=== PATIENT | male | born 2000 | race Hispanic/Latino ===

== ENCOUNTER 2023-01-05 02:15 | Emergency (ER) | payer OTHER ==
[~2023-01-05] VITALS: Ht 172.7 cm; Wt 54.4 kg
[2023-01-05 03:07] LABS: AMPHET/METH SCREEN,URINE NEGATIVE (NEGATIVE); BARBITURATE SCREEN, URINE NEGATIVE (NEGATIVE); BENZODIAZEPINES SCREEN,URINE NEGATIVE (NEGATIVE); CANNABINOID SCREEN,URINE POSITIVE (NEGATIVE); COCAINE SCREEN,URINE NEGATIVE (NEGATIVE); OPIATE SCREEN,URINE NEGATIVE (NEGATIVE); PHENCYCLIDINE SCREEN,URINE NEGATIVE (NEGATIVE)
[2023-01-05 03:13] LABS: BASOPHILS # (AUTO) 0.03 K/uL (0.00-0.20); BASOPHILS % (AUTO) 0.4 % (0.0-5.0); EOSINOPHILS # (AUTO) 0.05 K/uL (0.00-0.70); EOSINOPHILS % (AUTO) 0.6 % (0.0-8.0); HEMATOCRIT 36.6 % (42-54); IMMATURE GRANULOCYTE ABSOLUTE 0.02 K/uL (0-1); LYMPHOCYTES # (AUTO) 1.8 K/uL (1.0-4.8); LYMPHOCYTES % (AUTO) 21.9 % (21.0-51.0); MEAN CORPUSCULAR HEMOGLOBIN 27.5 pg (27.0-33.0); MEAN CORPUSCULAR HGB CONC 34.2 g/dL (32.0-36.0); MEAN CORPUSCULAR VOLUME 80.4 fL (80-100); MONOCYTES # (AUTO) 0.6 K/uL (0.1-1.0); MONOCYTES % (AUTO) 7.4 % (3.0-13.0); NEUTROPHILS # (AUTO) 5.8 K/uL (1.8-7.7); NEUTROPHILS % (AUTO) 69.5 % (40.0-77.0); PLATELET COUNT (AUTO) 176 K/uL (130-400); RED BLOOD CELL COUNT(AUTO) 4.55 MIL/uL (4.50-6.20); RED CELL DISTRIBUTION WIDTH 12.4 % (11.0-15.5); WHITE BLOOD COUNT (AUTO) 8.4 K/uL (4.8-10.8)
[2023-01-05 03:28] LABS: POTASSIUM 2.4 mmol/L (3.5-5.1)
[2023-01-05] MEDS ORDERED: 1/2NS+20MEQ KCL/1000ML 1,000 ML IV SCH (03:30)
[2023-01-05] MEDS ORDERED: POTASSIUM BICARB/CIT AC 25 MEQ TABLET.EFF PO ONE (03:30)
[2023-01-05] MEDS ORDERED: POTASSIUM CHLORIDE 20MEQ/100ML 100 ML IV ONE (03:38)
[2023-01-05] MEDS ORDERED: POTASSIUM BICARB/CIT AC 25 MEQ TABLET.EFF ONE (03:38)
[2023-01-05] MEDS ORDERED: PHARMACY COMMUNICATION MISC SCH (03:40)
[2023-01-05] MEDS ORDERED: MAGNESIUM 2GM PREMIX 50ML 50 ML IV ONE (03:47)
[2023-01-05 03:55] LABS: MAGNESIUM 1.8 mg/dL (1.80-2.40)
[2023-01-05] MEDS ORDERED: MAGNESIUM 2GM PREMIX 50ML 50 ML IV SCH (04:00)
[2023-01-05 06:21] VITALS: BP 125/63; PULSE 80; RESP 17; O2SAT 98
== END 2023-01-05 10:09 | disposition home or self-care (01) ==
LOC: EDH 02:15
DX: F12.10 Cannabis abuse, uncomplicated (principal); E87.6 Hypokalemia
CPT/HCPCS: 99285; 96365; 96366; 71045; 82550; 83735 ×2; 84484; 80048; 80305; 85025; 36415; 96368; 93005; 84132; J3475; J3480

== ENCOUNTER 2023-01-12 18:28 | Emergency (ER) | payer OTHER ==
[~2023-01-12] VITALS: Ht 188 cm; Wt 54.0 kg
[2023-01-12 19:12] LABS: BASOPHILS # (AUTO) 0.04 K/uL (0.00-0.20); BASOPHILS % (AUTO) 0.4 % (0.0-5.0); HEMATOCRIT 40.5 % (42-54); IMMATURE GRANULOCYTE ABSOLUTE 0.02 K/uL (0-1); LYMPHOCYTES # (AUTO) 3.2 K/uL (1.0-4.8); LYMPHOCYTES % (AUTO) 32.5 % (21.0-51.0); MEAN CORPUSCULAR HEMOGLOBIN 27.6 pg (27.0-33.0); MEAN CORPUSCULAR HGB CONC 33.1 g/dL (32.0-36.0); MEAN CORPUSCULAR VOLUME 83.3 fL (80-100); MONOCYTES # (AUTO) 0.5 K/uL (0.1-1.0); MONOCYTES % (AUTO) 5.1 % (3.0-13.0); NEUTROPHILS # (AUTO) 5.9 K/uL (1.8-7.7); NEUTROPHILS % (AUTO) 60.8 % (40.0-77.0); PLATELET COUNT (AUTO) 227 K/uL (130-400); RED BLOOD CELL COUNT(AUTO) 4.86 MIL/uL (4.50-6.20); RED CELL DISTRIBUTION WIDTH 13.2 % (11.0-15.5); WHITE BLOOD COUNT (AUTO) 9.7 K/uL (4.8-10.8)
[2023-01-12 19:22] LABS: POTASSIUM 3.2 mmol/L (3.5-5.1)
[2023-01-12 19:31] LABS: ALBUMIN 4.5 g/dL (3.5-5.0); BILIRUBIN,TOTAL 0.4 mg/dL (0.2-1.0); MAGNESIUM 1.8 mg/dL (1.80-2.40); TOTAL PROTEIN, SERUM 7.5 g/dL (6.0-8.3)
[2023-01-12 19:35] VITALS: BP 152/97; PULSE 86; RESP 20
[2023-01-12] MEDS ORDERED: POTA-200 PO (22:16)
== END 2023-01-12 22:30 | disposition home or self-care (01) ==
LOC: EDH 18:28
DX: F41.9 Anxiety disorder, unspecified (principal); E87.6 Hypokalemia
CPT/HCPCS: 36415; 71045; 80053; 83735; 84484; 85025

== ENCOUNTER 2024-11-29 15:51 | Emergency (ER) | payer OTHER ==
[~2024-11-29] VITALS: Ht 188 cm; Wt 63.5 kg
[~2024-11-29 15:51] MED LIST: POTA-200 PO
[2024-11-29 16:23] LABS: BASOPHILS # (AUTO) 0.03 K/uL (0.00-0.20); BASOPHILS % (AUTO) 0.5 % (0.0-5.0); EOSINOPHILS # (AUTO) 0.05 K/uL (0.00-0.70); EOSINOPHILS % (AUTO) 0.9 % (0.0-8.0); HEMATOCRIT 37.7 % (42-54); IMMATURE GRANULOCYTE ABSOLUTE 0.01 K/uL (0-1); LYMPHOCYTES % (AUTO) 18.7 % (21.0-51.0); MEAN CORPUSCULAR HEMOGLOBIN 27.4 pg (27.0-33.0); MEAN CORPUSCULAR HGB CONC 32.4 g/dL (32.0-36.0); MEAN CORPUSCULAR VOLUME 84.5 fL (79-99); MONOCYTES # (AUTO) 0.2 K/uL (0.1-1.0); MONOCYTES % (AUTO) 4.3 % (3.0-13.0); NEUTROPHILS # (AUTO) 4.2 K/uL (1.8-7.7); NEUTROPHILS % (AUTO) 75.4 % (40.0-77.0); PLATELET COUNT (AUTO) 168 K/uL (130-400); RED BLOOD CELL COUNT(AUTO) 4.46 MIL/uL (4.50-6.20); WHITE BLOOD COUNT (AUTO) 5.5 K/uL (4.8-10.8)
[2024-11-29 16:30] LABS: CREATININE 0.7 mg/dL (0.5-1.3); POTASSIUM 3.4 mmol/L (3.5-5.1)
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
--- NOTE | 2024-11-29 17:39 | EKG ---
[facility] Test Date: 2024-11-29 Test Time: 17:33:07 Pat Name: GARY HARGROVE Department: ED Room: Gender: M Senior Pharmacy Technician: [id number] : 2000 Requested By: JESSEE GREWAL Order Number: [id number] Reading MD: Charli Celeste Measurements Intervals [place] Rate: 60 P: 43 ND: 139 QRS: 78 QRSD: 109 T: 65 QT: 365 QTc: 366 Interpretive Statements Sinus rhythm Early Repolarization Electronically Signed On 11-30-2024 11:52:27 CDT by Charli Celeste Please click the below link to view image of tracing.
[2024-11-29 18:01] LABS: AMPHET/METH SCREEN,URINE NEGATIVE (NEGATIVE); BARBITURATE SCREEN, URINE NEGATIVE (NEGATIVE); BENZODIAZEPINES SCREEN,URINE NEGATIVE (NEGATIVE); CANNABINOID SCREEN,URINE POSITIVE (NEGATIVE); COCAINE SCREEN,URINE NEGATIVE (NEGATIVE); OPIATE SCREEN,URINE NEGATIVE (NEGATIVE); PHENCYCLIDINE SCREEN,URINE NEGATIVE (NEGATIVE)
[2024-11-29 18:33] VITALS: TEMP 98.4
[2024-11-29 19:45] VITALS: BP 113/61; PULSE 74; RESP 17; O2SAT 100
--- NOTE | 2024-11-30 13:36 | EKG ---
[facility] Test Date: 2024-11-29 Test Time: 16:01:02 Pat Name: GARY HARGROVE Department: ED Room: Gender: M Manager Utilization Review: 9920 : 2000 Requested By: JESSEE GREWAL Order Number: [id number] Reading MD: Charli Celeste Measurements Intervals [place] Rate: 64 P: 40 [place]: 136 QRS: 73 QRSD: 111 T: 66 QT: 358 QTc: 368 Interpretive Statements Sinus rhythm Early Repolarization Electronically Signed On 11-30-2024 16:21:08 CDT by Charli Celeste Please click the below link to view image of tracing.
== END 2024-11-29 20:05 | disposition home or self-care (01) ==
LOC: EDH 15:51
DX: R07.89 Other chest pain (principal); F12.10 Cannabis abuse, uncomplicated; Z79.899 Other long term (current) drug therapy; V89.2XXA Person injured in unspecified motor-vehicle accident, traffic, initial encounter; Y93.89 Activity, other specified; Y92.488 Other paved roadways as the place of occurrence of the external cause; Y99.8 Other external cause status
CPT/HCPCS: 36415; 71101; 80048; 80305; 84484; 85025; 93005; 99285